=== PATIENT | male | born 1945 | race Caucasian/White ===

== ENCOUNTER → 2017-10-02 | Outpatient (CLI) | payer BC ==
[~2017-10-02] MED LIST: KFLUNK PO; PANT40TA PO
[2017-10-02 10:13] LABS: BLOOD UREA NITROGEN 21 mg/dl (7-18); CALCIUM 9.6 mg/dl (8.5-10.1); CARBON DIOXIDE 29 mmol/L (21-32); CREATININE 1.04 mg/dl (0.60-1.40); GLUCOSE 92 mg/dl (70-99); POTASSIUM 4.4 mmol/L (3.5-5.1); SODIUM 137 mmol/L (136-145)
[2017-10-02 10:27] LABS: CHOLESTEROL 218 mg/dl (0-200); LDL CHOLESTEROL CALCULATED 154 mg/dl
== END | disposition home or self-care (01) ==
LOC: C.LAB 08:14
PROVIDERS: ATTEND Physician Assistant
DX: Z00.00 Encounter for general adult medical examination without abnormal findings (principal)

== ENCOUNTER 2024-09-30 08:53 | Inpatient (IN) ==
--- NOTE | 2024-09-23 09:01 | Anesthesiology Consultation ---
Date of Service September 23, 2024 Assessment & Plan (1) Encounter for pre-operative examination: - Per workers compensation claims adjuster on 09/21/24 No known infectious disease contacts, current infectious disease symptoms in past 10 days or COVID positive test result in the past 30 days. Chart Review Chart Review: Acceptable Risk for Surgery and Patient NOT seen in Pre Admission Testing History Surgery Operation Date: 09/30/24 12:25 Proposed Procedures p TURP (Transurethral Resection of Prostate) - Jaison Rajan MD Height/Weight Height: 5 ft 10 in Weight: 95.254 kg Allergies Allergy/AdvReac Type Severity Reaction Status Date / Time tamsulosin [From Flomax] AdvReac Severe lightheaded Verified 09/21/24 15:40 ness Xhxttox-LCD-VvT Reductase AdvReac Unknown Muscle Pain Verified 09/21/24 15:40 Inhibitor [Tzkswib-Dje-Xcc Reductase Inhibitor] Medications Home Medications Medication Instructions Recorded Confirmed Last Taken aspirin 81 mg tablet,delayed 81 mg PO QAM 01/10/22 09/21/24 01/14/22 release (Adult Low Dose Aspirin) famotidine 40 mg tablet 40 mg PO QAM #90 tabs 09/08/24 09/21/24 Unknown lutein 20 mg tablet 20 mg PO QAM 09/21/24 09/21/24 Unknown vibegron 75 mg tablet (Gemtesa) 75 mg PO QAM 09/21/24 09/21/24 Unknown Past Medical History Medical History (Updated 09/23/24 @ 08:54 by Mackenzie Macdonald PA-C) BPH (benign prostatic hyperplasia) GERD (gastroesophageal reflux disease) H/O exertional chest pain no recent issues, f/u yulissa correia cardio in the past History of COVID-19 November 19, 2021 tested positive. severe fatigue and head congestion. tested via home test>no residual symptoms History of sleep study "found to not have sleep apnea" Hx of colonic polyps Hx of hyperlipidemia Lyme disease (~2018) hx, no residual effects Macular degeneration Nocturia Peripheral neuropathy Urinary frequency To review of 12/28/21 [facility] cardiology note, it seems that intermittent exertional chest discomfort resolved with discontinuation of tamsulosin, subsequent stress test was negative. Past Family History Family History Father Colon cancer Mother Myocardial infarction Brother Prostate cancer Pancreatic cancer Other Heart disease Denies family history of Ovarian cancer Breast cancer Past Surgical History Surgical History (Updated 09/23/24 @ 08:54 by Mackenzie Macdonald PA-C) H/O hand surgery left hand (ring finger and little finger amputated) reattached the middle finger History of colonoscopy History of esophagogastroduodenoscopy (EGD) had a history of a esophageal patch (30+ years ago) [place] [facility] [place], no longer sees cardio S/P tooth extraction Social History Smoking Status: Never smoker Do You Dip or Chew Tobacco: No Hx Alcohol Use: Yes Alcohol type: wine and hard liquor alcohol intake frequency: a few times a week Hx Substance Use: No substance use type: does not use Lab Results Anesthesia Preop Results Results Anesthesia Widget: WBC 4.20 K/ul (4.8-10.8) L 09/22/24 Hgb 15.7 g/dl (14.0-18.0) 09/22/24 Hct 46.1 % (42.0-52.0) 09/22/24 Plt 174 K/uL (130-400) 09/22/24 Na 139 mmol/L (136-145) 09/22/24 K 4.3 mmol/L (3.5-5.1) 09/22/24 Cl 105 mmol/L (98-107) 09/22/24 CO2 30 mmol/L (21-32) 09/22/24 BUN 18 mg/dl (6-23) 09/22/24 Creat 1.02 mg/dl (0.6-1.4) 09/22/24 Glucose Level 97 mg/dl (70-99(Fasting)) 09/22/24 Testing Laboratory Results Surgeon's office confirmed no CXR needed per surgeon. Electrocardiogram Date: 09/22/24 Sinus rhythm with 1st degree AV block, rate 64 bpm Stress Test Date: 01/31/22 MPHR 88% METS 10 Negative exercise stress echo for ischemia EF 55-60% Mild cLVH Mildly dilated atria Mild tricuspid regurgitation
[~2024-09-30 08:53] MED LIST changes: +DEXAMETHASONE SOD INJ 4 MG/ML VIAL ONE; -KFLUNK PO; +MIDAZOLAM HCL 1 MG/ML 2ML VIAL ONE; +ONDANSETRON INJ 2 MG/ML 2 ML VIAL ONE; -PANT40TA PO; +PROPOFOL IV EMULSION 10 MG/ML 20 ML VIAL IV ONE; +fentaNYL citrate PF 100 MCG/2 ML VIAL ONE
[2024-09-30] MEDS: LR 15ML/HR IV SCH (09:25)
--- NOTE | 2024-09-30 10:24 | History & Physical Bridge Note ---
Date of Service September 30, 2024 History & Physical Bridge Note I have examined the patient, reviewed the History & Physical and in the interval since the performance of the History & Physical I have noted the following changes of clinical significance: no changes noted
[2024-09-30] MEDS ORDERED: ONDANSETRON INJ 2 MG/ML 2 ML VIAL IV PRN ×2 (10:27→12:35)
[2024-09-30] MEDS ORDERED: ATROPINE SULFATE 0.1 MG/ML 10ML SYR IV PRN (10:27)
[2024-09-30] MEDS ORDERED: ePHEDrine sulfate 50 MG/ML AMP IV PRN (10:27)
[2024-09-30] MEDS ORDERED: fentaNYL citrate PF 100 MCG/2 ML VIAL IV PRN (10:27)
[2024-09-30] MEDS: ceFAZolin 2000MG 2,000 MG/15 ML SYR IV SCH (10:57)
[2024-09-30] MEDS ORDERED: SUCCINYLCHOLINE 100MG/5ML SYR IV ONE (11:47)
--- NOTE | 2024-09-30 12:09 | Operative Report ---
PG Post Operative Report Pre & Post Diagnosis Operation Date: 09/30/24 10:30 Pre-Op Diagnosis: BPH With Lower Urinary Tract Symptoms Post-Op Diagnosis: BPH With Lower Urinary Tract Symptoms I identified the patient and participated in the time-out.: Yes Procedure Operation Date: 09/30/24 10:30 Actual Procedures p Transurethral Resection of Prostate - Jaison aRjan MD Surgeon Jaison Rajan MD Technical Buyer None Estimated Blood Loss 15 Findings See Below Trilobar hyperplasia, channel open and hemostatic at end of case Specimens Prostate chips Drains 24 Citizen [place] three-way with 30 cc in balloon Anesthesia Type General Complications none Indications 71-year-old male with BPH and obstruction with lower urinary tract symptoms who presents for a TURP Description of Procedure After informed consent was obtained, the patient was transported to the operative suite. General anesthesia was induced. They were placed in dorsal lithotomy position and prepped and draped in sterile fashion. They received preoperative Ancef based on preop urine culture. An appropriate surgical timeout was performed. The penile urethra was sequentially dilated from 20-30 [place]. 27 [place] resectoscope was inserted. [place] cystoscopy revealed no lesions. The ureteral orifices somewhat near the bladder neck so care was taken to not involve these and resection. I started with the median lobe and carefully pulled this back into the prostatic fossa with the loop and then resected this down to the bladder neck. I then moved to the 5 o'clock position of the prostate and res ected this down to just distal to the verumontanum. I then moved over to the 7 o'clock position of the prostate and resected this down to just distal to the verumontanum. His channel was open at the conclusion of the case. Hemostasis was achieved. I evacuated the prostate chips out with a Yamisee evacuator. The resectoscope was removed. The 24 Citizen [place] three-way catheter was inserted with return of clear urine. The bladder was irrigated with a Zac syringe. The balloon was inflated with 30 cc of sterile water. This concluded the end of the case. All counts were correct at the end of the case. I was present scrubbed and actively participated for the entire to the procedure. I attest to the content of the Intraoperative Record and any orders documented therein. Any exceptions are noted below.
--- NOTE | 2024-09-30 12:39 | Anesthesiology Progress Note ---
Date of Service September 30, 2024 Anesthesia Post Procedure Vital Signs Vital Signs: Temp Pulse Resp BP Pulse Ox O2 Del Method 09/30/24 09:10 97.7 F 106 H 20 146/86 H 98 Room Air Transfer of Care Handoff Completed per policy Notes Mental Status: alert / awake / arousable and participated in evaluation Patient Amnestic to Procedure: Yes Nausea / Vomiting: adequately controlled Pain: adequately controlled Airway Patency, RR, SpO2: see Notes below BP & HR: stable & adequate Hydration State: stable & adequate Anesthetic Complications: no major complications apparent and Pt Satisfied with anesthetic care Notes: patient with emesis episode intraop with LMA in place, patients mouth suctioned with noted bile in oropharynx, LMA removed and patient intubated without issue. OG tube was placed and suctioned bile from stomach, suction catheter placed in ETT with clear secretions noted. Lungs CTAB CXR ordered without obvious airspace opacities, however patient still requiring supplemental O2, discussed with Dr. Rajan concerns of potential deterioration given age and comorbidities, agreed with plan to admit patient for observation overnight.
--- NOTE | 2024-09-30 12:46 | XRay Report ---
XR chest 1V portable CLINICAL HISTORY: ASPIRATION TECHNIQUE: Single frontal radiograph of the chest was obtained. Comparison: Comparison is made to chest radiograph 04/27/2019 FINDINGS: Median sternotomy wires are unchanged. The cardiomediastinal silhouette is normal. Peribronchial thic kening is seen. No evidence of pleural effusion or pneumothorax. IMPRESSION: Peribronchial thickening is seen compatible with infectious/inflammatory airways disease or viral pne umonia. No ralph consolidation is seen. ACT 112: Negative or not required by law. Electronically signed by: Calixto Villela M.D. 09/30/2024 12:45 PM
[2024-09-30] MEDS: oxyBUTYnin chloride 5 MG TAB PO SCH (17:12)
[2024-09-30] MEDS: FAMOTIDINE 40 MG TABLET PO ONE (17:13)
[2024-09-30] MEDS: KETOROLAC TROMETHAMINE 15 MG/ML VIAL IV PRN (20:57)
[2024-10-01] MEDS: FAMOTIDINE 40 MG TABLET PO SCH (07:56)
[2024-10-01] MEDS: COUGH DROP (SUGAR FREE) LOZ 24 LOZ/1 BOX BUCCAL ONE (07:59)
[2024-10-01 09:27] VITALS: O2SAT 95
--- NOTE | 2024-10-01 11:55 | Urology Progress Note ---
Date of Service October 01, 2024 Assessment & Plan (1) BPH (benign prostatic hyperplasia): Plan: 79-year-old male with history of BPH status post outpatient TURP on 09/30 admitted for observation after procedure due to aspiration. Patient currently afebrile, hemodynamically stable, saturating well on room air. He is subjectively doing well and is ready to go home. Corona patent and draining relatively clear urine with minimal blood-tinge. Maintain Corona catheter at discharge. Will send course of Augmentin as a precaution. Expected clinical course reviewed, all questions answered. Outpatient follow-ups in place. Admission and Anticipated Discharge Date Admission Date: September 30, 2024 Subjective Patient seen and examined at bedside. present. Subjectively feeling well and would like to go home. Noted to have Temp of 38.2 at 2035. He said his room was hot last night. Denies fever or chills. He is currently on room air. Denies cough or shortness of breath. Corona intact. Review of Systems Constitutional: as per Subjective / HPI Genitourinary: + as per Subjective / HPI Physical Exam Constitutional: well developed and well nourished; no acute distress Respiratory: normal respiratory effort; no respiratory distress and no labored breathing Gastrointestinal (Abdomen): Inspection/Auscultation: abdomen normal to inspection Musculoskeletal: Head/Neck/Chest: normocephalic Neurologic: moves all extremities and awake Psychiatric: Orientation: alert and oriented x 3 Genitourinary: Corona intact and draining relatively clear urine, minimal blood tinge Results & Data Vital Signs (Past 12 Hours) Vital Signs Temp Pulse Resp BP BP Pulse Ox O2 Del Method 10/01/24 09:27 85 20 95 Room Air 10/01/24 07:55 82 20 94 Room Air 10/01/24 07:45 Room Air 10/01/24 07:01 37.1 C 76 16 110/64 97 Nasal Cannula 10/01/24 03:16 36.6 C 78 16 102/61 94 Nasal Cannula 10/01/24 00:19 95 Nasal Cannula O2 Flow Rate 10/01/24 09:27 10/01/24 07:55 10/01/24 07:45 10/01/24 07:01 3 10/01/24 03:16 3 10/01/24 00:19 2 PG Care Time/CCT Total # of Minutes Spent Total Time Spent with Patient: Total time spent is greater than 50% in coordination of care (as documented) at patient's floor/unit and/or counseling patient: Coding Level of Care Code None Diagnoses BPH (benign prostatic hyperplasia) N40.0
[2024-10-01 12:11] VITALS: BP 115/70; PULSE 75; RESP 16; TEMP 98.2
--- NOTE | 2024-10-01 13:31 | Discharge Summary ---
Date of Service October 01, 2024 Admission HPI Per Admitting Provider Patient with BPH with obstruction here for TURP Principal Diagnosis BPH Discharge Exam Constitutional well developed and well nourished; no acute distress Respiratory normal respiratory effort; no respiratory distress and no labored breathing Gastrointestinal (Abdomen) Inspection/Auscultation: abdomen normal to inspection Musculoskeletal Head/Neck/Chest: normocephalic Neurologic moves all extremities and awake Psychiatric Orientation: alert and oriented x 3 Genitourinary Corona with relatively clear urine, minimal blood tinge Discharge Data Allergies Allergy/AdvReac Type Severity Reaction Status Date / Time tamsulosin [From Flomax] AdvReac Severe lightheaded Verified 09/30/24 09:13 ness Rvzcgnc-PVG-JlQ Reductase AdvReac Unknown Muscle Pain Verified 09/30/24 09:13 Inhibitor [Lhhpimx-Uxr-Tnl Reductase Inhibitor] Procedures Performed Operation Date: 09/30/24 10:30 Actual Procedures p Transurethral Resection of Prostate - Jaison Rajan MD Hospital Course (1) BPH (benign prostatic hyperplasia): 79-year-old male with history of BPH status post outpatient TURP on 09/30 admitted for observation after procedure due to aspiration. Patient currently afebrile, hemodynamically stable, saturating well on room air. He is subjectively doing well and is ready to go home. Corona patent and draining relatively clear urine with minimal blood-tinge. Maintain Corona catheter at discharge. Will send course of Augmentin as a precaution. Expected clinical course reviewed, all questions answered. Outpatient follow-ups in place. Total Time Total Time Spent Total Time Spent (In Minutes): 25 Discharge Plan Discharge Items Patient Disposition: Home - Self-Care Reason For Visit: BPH Without Lower Urinary Tract Symptoms Discharge Diagnosis: Same Activity: Per Instructions section Lifting: No more than 25 pounds Bathing Comment: Okay to shower after discharge, no tub bath or soaking Sexual Activity: Wait until after follow-up appointment Exercise/Sports: Wait until after follow-up appointment Driving/Machine Use: No limitations Non-emergency contact: Surgeon and Urologist Call non-emergency contact if: your pain is not controlled, you have a fever and your temperature is above 101 Follow-up/Referrals: Idalmis Menjivar MD [Primary Care Provider] - Jaison Rajan MD [Physician] - 11/27/24 8:30 am [facility],RN [FAKE FOR SCHEDULES] - 10/05/24 10:30 am Diet: Regular Addtl Attending Provider Instructions: -Continue your home medications unless changes listed below. -Nursing will show you how to take care of your catheter. -Take gemtesa as needed for Corona catheter discomfort. -MiraLAX [id number] as needed for constipation -Continue your previous diet. -Call the office at [phone] if your Corona catheter is not draining or you have fevers greater than 101 F -You will get called regarding a visit to have your catheter removed and to ensure you can urinate. Pending Studies at Discharge: Yes Stand-Alone Forms: My [facility] Medications and DC Order Prescriptions: New oxycodone 5 mg tablet 5 mg PO Q6H PRN (Reason: pain) Qty: 7 0RF amoxicillin-pot clavulanate 875-125 mg tablet 1 tab PO BID Qty: 10 0RF Continued famotidine 40 mg tablet 40 mg PO QAM Qty: 90 1RF aspirin [Adult Low Dose Aspirin] 81 mg tablet,delayed release (DR/EC) 81 mg PO QAM lutein 20 mg Tablet 20 mg PO QAM Rx Instructions: give with meal/snack Gemtesa 75 mg tablet 75 mg PO QAM Discharge Orders: Discharge Order (Routine); Ordered 10/01/24 Ordered By: Courtney Balderas Admission Data Admit Date/Time: 09/30/24 12:37 Attending Provider: Jaison Rajan Admit Provider: Jaison Rajan Primary Care Provider: Idalmis Menjivar Other Interventions: Discharge Summary Assessment (RN) Last Done: 10/01/24 12:22 Coding Level of Care Code 12776 IN/OBS DISCH 30 MIN/LESS Diagnoses BPH (benign prostatic hyperplasia) N40.0
== END 2024-10-01 13:28 | disposition home or self-care (01) | DRG 713 ==
LOC: ASU 08:53 → PACUINP 12:37 → 3E 15:41